=== PATIENT | male | born 1950 | race Caucasian/White ===

== ENCOUNTER → 2016-07-07 | Day surgery (SDC) | payer OTHER, BC ==
[2016-07-07 09:28] LABS: BASOPHIL 0.5 % (0-2.0); EOSINOPHIL 5.4 % (0-4.5); MCH 29.8 pg (25.7-33.7); MCHC 33.6 g/dl (32.0-35.9); MEAN CELL VOLUME 88.5 fl (80-96); MEAN PLT VOLUME 8.6 fl (7.5-11.1); NEUTROPHILS 49.8 % (42.8-82.8); PLATELET COUNT 162 K/MM3 (134-434); WHITE BLOOD COUNT 7.3 K/mm3 (4.0-10.0)
[2016-07-07 09:31] LABS: URINE APPEARANCE CLEAR; URINE BILIRUBIN NEGATIVE (NEGATIVE); URINE COLOR LT. YELLOW; URINE GLUCOSE (UA) NEGATIVE (NEGATIVE); URINE KETONE NEGATIVE (NEGATIVE); URINE LEUK ESTERASE NEGATIVE (NEGATIVE); URINE NITRITE NEGATIVE (NEGATIVE); URINE PROTEIN NEGATIVE (NEGATIVE); URINE UROBILINOGEN 0.2 E.U/dl E.U./dl (0.2-1.0)
[2016-07-07 09:33] LABS: URINE BLOOD 2+ (NEGATIVE)
[2016-07-07 09:44] LABS: URINE MUCUS FEW; URINE RBC 1 /hpf (0-3); URINE WBC 1 /hpf (3-5)
[2016-07-07 10:01] LABS: ALBUMIN 3.8 g/dl (3.4-5.0); ANION GAP 8 (8-16); BILIRUBIN,TOTAL 0.3 mg/dL (0.2-1.0); CALCIUM 8.2 mg/dL (8.5-10.1); CHOLESTEROL 181 mg/dL (50-200); CO2 28 mmol/L (21-32); CREATININE 0.9 mg/dL (0.7-1.3); GLUCOSE,RANDOM 97 mg/dL (74-106); LDL CHOLESTEROL (ONLY SJRH) 120 mg/dL (5-100); SGOT/AST 16 U/L (15-37); SGPT/ALT 25 U/L (12-78); THYROXINE (T4) 8.3 ug/dl (4.5-12.1); TOT PROT 7.4 g/dl (6.4-8.2)
[2016-07-07 10:08] LABS: ALK PHOS 65 U/L (45-117); FREE T4 0.97 ng/dl (0.76-1.16); THYROID STIMULATING HORMONE 1.35 uIU/ml (0.358-3.74)
[2016-07-08 08:07] LABS: THYROID PROXIDASE 7 IU/mL (0-34)
--- NOTE | 2016-07-08 13:46 | PATH ---
Cytology Non-Gynecological Report Patient Name: GABE TURPIN [facility]. Rec. #: [id number] /Age/Gender: 1950 (Age: 65) / M Account: [id number] Location: RADIOLOGY ULTRA Taken: 07/07/2016 Received: 07/07/2016 Reported: 07/08/2016 Physicians: Lainey Mathew M.D. Specimen(s) Received LEFT THYROID FNA Clinical History Left thyroid nodule, 3.57 x 1.00 x 1.66 cm Final Diagnosis THYROID GLAND, LEFT LOBE, US GUIDED FINE NEEDLE ASPIRATION BIOPSY: SATISFACTORY FOR EVALUATION. NO MALIGNANT CELLS IDENTIFIED. CONSISTENT WITH NODULAR GOITER WITH CYSTIC CHANGE (BENIGN FOLLICULAR NODULE, BETHESDA CATEGORY II, BENIGN), SEE COMMENT. Comment: This smears and the cell block show clusters of bland appearing follicular epithelium cells arranged in mixed macro- and microfollicles. 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 Macrophages are present indicative of cystic change. Colloid is present. Electronically Signed Ike Lopez M.D. Gross Description Received are four air dried smears, four smears in 95% alcohol, and 20 cc of bloody fluid in formalin. Four diff-quik stained slides, four Pap stained slides and one cell block are made.
== END | disposition home or self-care (01) ==
LOC: JRADIR 08:16
PROVIDERS: ATTEND Internal Medicine Endocrinology, Diabetes & Metabolism
PROC: 0G9G3ZX Drainage of Left Thyroid Gland Lobe, Percutaneous Approach, Diagnostic (ICD-10-PCS; principal; 2016-07-07)
PROC: BG44ZZZ Ultrasonography of Thyroid Gland (ICD-10-PCS; 2016-07-07)
DX: E04.1 Nontoxic single thyroid nodule (principal)
CPT/HCPCS: 36415; 76942; 80053; 80061; 81003; 81015; 82306; 83036; 83721; 84436; 84439; 84443; 85025; 86376; 86800; 88173; 88305-TC

== ENCOUNTER → 2016-07-27 | Day surgery (SDC) | payer OTHER, BC ==
--- NOTE | 2016-07-28 14:07 | PATH ---
Cytology Non-Gynecological Report Patient Name: GABE TURPIN [facility]. Rec. #: [id number] /Age/Gender: 1950 (Age: 65) / M Account: [id number] Location: RADIOLOGY Taken: 07/27/2016 Received: 07/27/2016 Reported: 07/28/2016 Physicians: Lainey Mathew M.D. Specimen(s) Received RIGHT THYROID FNA Clinical History Right thyroid nodule, 1.27 x 1.28 x 0.84 cm Final Diagnosis THYROID GLAND, RIGHT LOBE, US GUIDED FINE NEEDLE ASPIRATION BIOPSY: SATISFACTORY FOR EVALUATION. NO MALIGNANT CELLS IDENTIFIED. CONSISTENT WITH NODULAR GOITER (BENIGN FOLLICULAR NODULE, BETHESDA CATEGORY II, BENIGN), SEE COMMENT. Comment: The smears and the cell block show scattered clusters of bland appearing follicular epithelial cells and abundant colloid. Electronically Signed Ike Lopez M.D. Gross Description Received are four air dried smears, four smears in 95% alcohol, and 20 cc of bloody fluid in formalin. Four diff-quik stained slides, four Pap stained slides and one cell block are made.
== END | disposition home or self-care (01) ==
LOC: JRADIR 08:25
PROVIDERS: ATTEND Internal Medicine Endocrinology, Diabetes & Metabolism
PROC: 0G9H3ZX Drainage of Right Thyroid Gland Lobe, Percutaneous Approach, Diagnostic (ICD-10-PCS; principal; 2016-07-27)
PROC: BG44ZZZ Ultrasonography of Thyroid Gland (ICD-10-PCS; 2016-07-27)
DX: E04.1 Nontoxic single thyroid nodule (principal)
CPT/HCPCS: 76942; 88173; 88305-TC